=== PATIENT | male | born 1995 | race Two or more races ===

== ENCOUNTER 2017-10-08 23:49 | Emergency (ER) | payer SELFPAY ==
[~2017-10-08] VITALS: Ht 167.6 cm; Wt 68.0 kg
[2017-10-08 23:53] VITALS: BP 142/88
== END 2017-10-09 03:49 | disposition left against medical advice (07) ==
LOC: ER 23:49
DX: T41.0X1A Poisoning by inhaled anesthetics, accidental (unintentional), initial encounter (principal); Z53.21 Procedure and treatment not carried out due to patient leaving prior to being seen by health care provider; Y92.89 Other specified places as the place of occurrence of the external cause